=== PATIENT | male | born 1990 | race Caucasian/White ===

== ENCOUNTER 2018-10-10 15:47 | Emergency (ER) | payer OTHER ==
[2018-10-10 15:54] VITALS: BP 144/80
--- NOTE | 2018-10-10 16:09 | EDPHY ---
HPI/HX/ROS/PE/MDM Narrative: CHIEF COMPLAINT: Head injury HPI: The patient is a 28 y/o male arriving for evaluation of a head injury suffered at work 30 minutes ago. He works stocking inventory and while at work a ladder fell and struck the back of his head. He does not have a significant headache, but does feel somewhat "out of it." He denies loss of consciousness, vision changes, vomiting, weakness, paresthesias, or other injuries. He is typically healthy. REVIEW OF SYSTEMS: A comprehensive 10 system review of systems is otherwise negative aside from elements mentioned in the history of present illness. PMH: Anxiety SOCIAL HISTORY: Employed in inventory at [employer]. PHYSICAL EXAM: General:Patient is alert, in no acute distress. Head: Atraumatic. ENT:Eyes are normal to inspection. ENT inspection normal. Neck: Normal inspection. Full range of motion. Respiratory:No respiratory distress. Breath sounds normal bilaterally. Cardiovascular: Regular rate and rhythm. Strong peripheral pulses. Normal cap refill. Abdomen:The abdomen is nontender to palpation. There are no peritoneal signs. Back: Normal to inspection. No tenderness to palpation. Skin: Normal color. No rash. Warm and dry. Extremities: Normal appearance. Full range of motion. Neuro: Oriented x3. Normal motor function. Normal sensory function. ED Course: Healthy 28 y/o male presents for evaluation of head injury after a ladder fell striking the back of his head 30 minutes prior to arrival in the ED. Head is atraumatic and he has a nonfocal neuro exam. He does not meet criteria for head CT per [place] [facility] CT guidelines. Discussed risks and benefits of imaging and patient opted to not proceed with CT at this time. He will be discharged with standard head injury care and follow up instructions. Return precautions discussed. He is comfortable with this plan. General Time Seen by Provider: 10/10/18 16:02 Initial Vital Signs: Initial Vital Signs Temperature (C) 37 C 10/10/18 15:51 Heart Rate 62 10/10/18 15:51 Respiratory Rate 18 10/10/18 15:51 Blood Pressure 144/80 H 10/10/18 15:51 O2 Sat (%) 96 10/10/18 15:51 O2 Delivery Mode Room Air Allergies/Adverse Reactions: No Known Allergies Allergy (Unverified 10/10/18 15:51) Home Medications: Medication Instructions Recorded Sertraline HCl 10/10/18 Departure - Departure Disposition: Home, Routine, Self-Care Clinical Impression: Head injury Qualifiers: Encounter type: initial encounter Qualified Code(s): S09.90XA - Unspecified injury of head, initial encounter Condition: Good Instructions: Head Injury (ED) Additional Instructions: 1. Tylenol and ibuprofen as directed on the packaging as needed for pain over the next few days. 2. Avoid activities that could lead to a repeat head injury over the next week. 3. Symptoms could last for a few days, but if they continue past 1 week please follow up with the head injury specialist, Dr. Bledsoe. 4. Return to the ED if you develop severe pain, weakness, numbness, confusion, speech difficulty, vision loss, or other worsening of condition. Follow up with your company's HR department as directed by them for any workman' s comp questions or additional follow up instructions. Referrals: Peggy Bledsoe MD [Medical Doctor] - As per Instructions Report Scribed for: Carroll Jordan Report Scribed by: Carmen Arredondo Date of Report: 10/10/18 Time of Report: 16:11 Physician Review and Approval Statement: Portions of this note were transcribed by an ED scribe. I personally performed the history, physical exam, and medical decision making; and confirm the accuracy of the information in the transcribed note.
== END 2018-10-10 16:15 | disposition home or self-care (01) ==
LOC: EDBD 15:47
DX: S09.90XA Unspecified injury of head, initial encounter (principal); W20.8XXA Other cause of strike by thrown, projected or falling object, initial encounter; Y93.89 Activity, other specified; Y99.0 Civilian activity done for income or pay